=== PATIENT | female | born 1960 | race Hispanic/Latino ===

== ENCOUNTER → 2024-02-04 | Day surgery (SDC) | payer OTHER ==
[~2024-02-04] MED LIST: B COMPLEX WITH1 EACH PO; CALCIUM ACETAT667 MG PO; GLUCOSAMINE &1 EACH PO; LIDOCAINE HCL 2% LOCAL INJ 5 ML SDV VIAL INJ ONE; MELATONIN PO; MIDAZOLAM HCL 2 MG/2 ML VIAL ONE; POTASSIUM CHLO10 ME1 PO; PROPOFOL IV EMULSION 10 MG/ML 20 ML VIAL ONE; VITAMIN A PO; ZINC CHELATED50 M2 PO
[2024-02-04] MEDS: LACTATED RINGER'S 1,000 ML ONE (16:15)
[2024-02-04 18:08] VITALS: TEMP 97.6
[2024-02-04 18:30] VITALS: BP 126/72; PULSE 84; RESP 18; O2SAT 99
== END | disposition home or self-care (01) ==
LOC: OR 15:30
PROVIDERS: ATTEND Internal Medicine Gastroenterology
DX: Z12.11 Encounter for screening for malignant neoplasm of colon (principal); D12.2 Benign neoplasm of ascending colon; D12.5 Benign neoplasm of sigmoid colon; K57.30 Diverticulosis of large intestine without perforation or abscess without bleeding; K64.1 Second degree hemorrhoids; M06.9 Rheumatoid arthritis, unspecified; F41.9 Anxiety disorder, unspecified; F32.A Depression, unspecified; Z01.810 Encounter for preprocedural cardiovascular examination; Z86.16 Personal history of COVID-19; Z87.01 Personal history of pneumonia (recurrent); Z86.11 Personal history of tuberculosis; Z87.891 Personal history of nicotine dependence
CPT/HCPCS: 45385; 93005; J2001; J2250; J2704; J7121